=== PATIENT | male | born 1990 | race Caucasian/White ===

== ENCOUNTER 2016-08-26 17:50 | Emergency (ER) | payer OTHER ==
--- NOTE | 2016-08-26 19:08 | DIAGNOSTIC IMAGING REPORT ---
PROCEDURE: XR LUMBAR SPINE 2 OR 3 VIEWS INDICATION: LOWER BACK PAIN TECHNIQUE: Three views of the lumbar spine COMPARISON: None. FINDINGS: Five lumbar-type vertebral bodies are present. Normal vertebral body height without fracture. Normal AP and transverse alignment. Disc spacing is normal. No significant endplate or facet joint degeneration. The visible osseous pelvis and bowel gas pattern are normal. IMPRESSION: 1. Intact lumbar spine.
--- NOTE | 2016-08-26 19:11 | ED CLINICAL REPORT ---
Clinical Report - Physicians/Mid Levels [facility] [address] [place] [address] 08/26/2016 17:53 Patient: CANDY LOWE Time Seen: 18:17. Arrived- By private vehicle. Historian- patient. HISTORY OF PRESENT ILLNESS Chief Complaint: BACK PAIN. Onset was yesterday and it is still present. It was abrupt in onset. It is described as being in the area of the lower lumbar spine. The quality is noted to be aching. No radiation. No bladder dysfunction, bowel dysfunction, sensory loss or motor loss. Additional history - Was working in the yard yesterday shoveling and he felt a twinge in his back. Today he got up and his back keeps having spasms and pain. Patient notes an injury. Mechanism of injury- he was lifting and turning. Occurred at home. REVIEW OF SYSTEMS No chills, fever, sweats, calf pain or chest pain. No cough, difficulty breathing, pedal edema, palpitations or abdominal pain. No diarrhea, nausea or vomiting. All systems otherwise negative, except as recorded above. PAST HISTORY Problems: Ankylosing Spondylitis. Additional Surgeries: no known surgeries. Medications: None. Allergies: No Known Drug Allergy. SOCIAL HISTORY Current every day heavy tobacco smoker (cigarette)- less than 1 pack per day. History of drug use: marijuana. No alcohol use. FAMILY HISTORY Denies family medical history. ADDITIONAL NOTES The nursing notes have been reviewed. PHYSICAL EXAM Vital Signs: 08/26/2016 18:02 BP: 136/67. HR: 100. RR: 18. O2 saturation: 100%. Temp: 97.8 F. Have been reviewed. Appearance: Alert. Eyes: Pupils equal, round and reactive to light. ENT: Pharynx normal. Neck: Normal inspection. Painless ROM. CVS: Heart sounds normal. Respiratory: No respiratory distress. Breath sounds normal. Abdomen: No visible injury. Soft and nontender. Bowel sounds normal. No organomegaly. No mass. Back: Normal inspection. Moderate muscle spasm of the right and left posterior back. Moderately limited ROM in the back- in the lumbar spine: decreased flexion, extension, right lateral bending, left lateral bending and rotation to the right and left. Skin: Skin warm and dry. Normal skin color. Normal skin turgor. Extremities: Extremities exhibit normal ROM. No calf tenderness. Neuro: No motor deficit. No sensory deficit. LABS, X-RAYS, AND EKG LS-Spine X-rays: (L5-S1 disc space narrowing). The X-rays were independently viewed by me. PROGRESS AND PROCEDURES Course of Care: Patient is stable. Patient/family counseled. Old medical records ordered. Disposition: Discharged. Condition: stable. CLINICAL IMPRESSION Acute lumbar back pain associated with muscle strain. INSTRUCTIONS Apply ice for 20 minutes four times a day until better. Don't apply ice directly to skin and don't use while asleep. No driving or operating machinery while taking medication. No lifting greater than 5 lbs, no bending or stooping or no prolonged sitting. Warnings: GENERAL WARNINGS: Return or contact your physician immediately if your condition worsens or changes unexpectedly, if not improving as expected, or if other problems arise. Prescription Medications: Flexeril 10 mg: Take 1 orally every 8 hours as needed for muscle spasm. Dispense twenty (20). No refills. Substitution is permissible. Ketorolac 10 mg tablets: Take 1 tablet orally every 6 hours as needed. Dispense fifteen (15). No refills. Follow-up: Follow up with your doctor Monday in four days if not better. Understanding of the discharge instructions verbalized by patient. (Electronically signed by Amari Hodges MD 08/27/2016 10:09)
--- NOTE | 2016-08-26 19:11 | ED ORDER SUMMARY ---
..... Patient: CANDY LOWE OrderSheet [facility] VisitID: [id number] [address] [place] [address] 25y, M Registration Date/Time: 08/26/2016 ORDER SHEET Weight: 88.4 kg (stated) Allergies: No Known Drug Allergy GENERAL ORDERS: Lumbar Spine 2 or 3V Urgent (18:19 08/26/2016 Lex HOGAN) ([facility]ck 18:[address] [facility] [facility] (18:43 [facility]) MEDICATION ORDERS: IV FLUIDS: ORDER SHEET NOTES: [Electronically signed by Radha Garsia R.N. (19:43 08/26/2016)] [Electronically signed by Amari Hodges MD (10:09 08/27/2016)] [Electronically locked/signed by Radha Garsia R.N. (19:43 08/26/2016)]
--- NOTE | 2016-08-26 19:11 | ED NURSING NOTES ---
Clinical Report - Nurses Located Within [facility] [address] [place] [address] 08/26/2016 17:53 Patient: CANDY LOWE TRIAGE Triage time 18:Aug 26 2016. Acuity: LEVEL 4. Chief Complaint: BACK PAIN. RADHA COMA SCORE: Radha Coma Scale: 15- eyes open spontaneously (4); best verbal response- oriented x 4 (5); best motor response- obeys commands (6). --18:07 Graciela Bolden R.N. 18:02 08/26/16. BP: 136/67. HR: 100. RR: 18. O2 saturation: 100%. Temp: 97.8 F. Pain level now 8/10. --18:07 Graciela Bolden R.N. Weight: 88.4 kg stated. Height/Length: 71 inches Per Patient. BMI: 27.2. --18:06 Graciela Bolden R.N. Medications None. --18:05 Graciela Bolden R.N. Allergies No Known Drug Allergy. --18:05 Graciela Bolden R.N. History Arrived by private vehicle. Historian: patient. Accompanied by family. This started just prior to arrival. ( Was working in the yard yesterday shoveling and he felt a twinge in his back. Today he got up and his back keeps having spasms and pain.). He has had trouble walking. PAST MEDICAL HX: Tetanus status: unknown. Immunizations: status is unknown. SOCIAL HX: Current every day heavy tobacco smoker (cigarette)- less than 1 pack per day. History of drug use: marijuana. No alcohol use. SELF HARM ASSESSMENT: A self harm assessment was performed. The patient answered "no" to the question "Have you recently felt down, depressed, or hopeless?" and "Do you have thoughts of harming or killing yourself?". FALL RISK ASSESSMENT: Fall risk assessment completed. No fall risk identified. NUTRITIONAL RISK ASSESSMENT: The nutritional risk assessment revealed no deficiencies. FUNCTIONAL ASSESSMENT: Functional assessment: no impairments noted. LEARNING NEEDS ASSESSMENT: The learning needs assessment revealed no barriers. ABUSE ASSESSMENT: Abuse assessment: (yes) The patient was asked "Do you feel safe in your home?". SKIN INTEGRITY ASSESSMENT: Skin integrity risk assessment completed. No skin integrity risk identified. --18: Graciela Bolden R.N. PROBLEMS: Ankylosing Spondylitis. --18:05 Graciela Bolden R.N. ADDITIONAL SURGERIES: no known surgeries. Interventions ID band on patient. --18: Graciela Bolden R.N. PHYSICAL ASSESSMENT To room via wheelchair. GENERAL / NEURO / PSYCH: Alert. Oriented X 4. Appears in pain. RESPIRATORY: Respirations not labored. Chest nontender. Breath sounds within normal limits. CVS: Normal heart rate and rhythm. Capillary refill less than 2 seconds. GI / : Abdomen soft and nontender. Bowel sounds within normal limits. ( Last BM this am and normal). CVA tenderness. EXTREMITIES: Sensation intact in extremities. ROM of extremities within normal limits. BACK: Limited ROM of the back. Soft tissue tenderness. --18:08 Graciela Bolden R.N. NURSING PROGRESS NOTES The initial plan of care for this patient includes an assessment with efforts to address patient positioning, appropriate ambient lighting and comfortable environmental temperature; impairment of the musculoskeletal system. Pulse oximeter and NIBP monitor placed on patient. Cold pack applied. Head of bed elevated 75 degrees. Reassurance given. Call light placed in reach. Side rails up x 1. Bed placed in lowest position. Brakes of bed on. --18:08 Graciela Bolden R.N. DISPOSITION / DISCHARGE Departure time: 1915. Condition at departure: improved and stable. ( pt ambulated out of department without gait disturbance). No learning barriers present. Discharge instructions provided and reviewed with the patient. Reviewed medication(s) side effects, precautions, dosing and course information. Prescription(s) given to the patient. Reviewed referral to a primary care physician for followup. Activity restrictions (light lifting and no driving) reviewed. Patient and family verbalized understanding. Written instructions provided in [place]. The patient was discharged home and accompanied by family. He left the Emergency Department ambulatory and via private vehicle. Family member driving. --19:42 Radha Garsia R.N. 19:16 08/26/16. BP: deferred. HR: deferred. RR: deferred. O2 saturation: deferred. Temp: deferred. Pain level now deferred. --19:42 Radha Garsia R.N. Locked/Released at 08/26/2016 19:43 by Radha Garsia R.N.
--- NOTE | 2016-08-26 19:11 | ED ORDER SUMMARY ---
..... Patient: CANDY LOWE OrderSheet [facility] VisitID: [id number] [address] [place] [address] 25y, M Registration Date/Time: 08/26/2016 ORDER SHEET Weight: 88.4 kg (stated) Allergies: No Known Drug Allergy GENERAL ORDERS: Lumbar Spine 2 or 3V Urgent (18:19 08/26/2016 Lex HOGAN) ([facility]ck 18:[facility] (18:43 [facility]) MEDICATION ORDERS: IV FLUIDS: ORDER SHEET NOTES: [Electronically signed by Radha Garsia R.N. (19:43 08/26/2016)] [Electronically signed by Amari Hodges MD (10:09 08/27/2016)] [Electronically locked/signed by Radha Garsia R.N. (19:43 08/26/2016)]
--- NOTE | 2016-08-27 10:10 | ED MAR SUMMARY ---
..... Medication Administration Record [facility] [address] [id number] Patient: CANDY LOWE Jorge Visit ID: [id number] 25y, M Weight: 88.4 kg Height/Length: 71 in BMI: 27.2 ALLERGIES: No Known Drug Allergy
--- NOTE | 2016-08-27 10:10 | ED DISCHARGE INSTRUCTIONS ---
Patient: CANDY LOWE General Instructions [facility] VisitID: [id number] [address] [place] [address] 25y, M Registration Date/Time: 08/26/2016 Acute lumbar back pain associated with muscle strain. INSTRUCTIONS Apply ice for 20 minutes four times a day until better. Don't apply ice directly to skin and don't use while asleep. No driving or operating machinery while taking medication. No lifting greater than 5 lbs, no bending or stooping or no prolonged sitting. Warnings: GENERAL WARNINGS: Return or contact your physician immediately if your condition worsens or changes unexpectedly, if not improving as expected, or if other problems arise. Prescription Medications: Flexeril 10 mg: Take 1 orally every 8 hours as needed for muscle spasm. Dispense twenty (20). No refills. Substitution is permissible. Ketorolac 10 mg tablets: Take 1 tablet orally every 6 hours as needed. Dispense fifteen (15). No refills. Follow-up: Follow up with your doctor Monday in four days if not better. Understanding of the discharge instructions verbalized by patient. ADDITIONAL INFORMATION Back Pain [Acute Or Chronic] Back pain is usually caused by an injury to the muscles or ligaments of the spine. Sometimes the disks that separate each bone in the spine may bulge and cause pain by pressing on a nearby nerve. Back pain may also appear after a sudden twisting/bending force (such as in a car accident), after a simple awkward movement, or lifting something heavy with poor body positioning. In either case, muscle spasm is often present and adds to the pain. Acute back pain usually gets better in one to two weeks. Back pain related to disk disease, arthritis in the spinal joints or spinal stenosis (narrowing of the spinal canal) can become chronic and last for months or years. Unless you had a physical injury (for example, a car accident or fall) X-rays are usually not ordered for the initial evaluation of back pain. If pain continues and does not respond to medical treatment, x-rays and other tests may be performed at a later time. Home Care: You may need to stay in bed the first few days. But, as soon as possible, begin sitting or walking to avoid problems with prolonged bed rest (muscle weakness, worsening back stiffness and pain, blood clots in the legs). When in bed, try to find a position of comfort. A firm mattress is best. Try lying flat on your back with pillows under your knees. You can also try lying on your side with your knees bent up towards your chest and a pillow between your knees. Avoid prolonged sitting. This puts more stress on the lower back than standing or walking. During the first two days after injury, apply an ICE PACK to the painful area for 20 minutes every 2-4 hours. This will reduce swelling and pain. HEAT (hot shower, hot bath or heating pad) works well for muscle spasm. You can start with ice, then switch to heat after two days. Some patients feel best alternating ice and heat treatments. Use the one method that feels the best to you. You may use acetaminophen (Tylenol) or ibuprofen (Motrin, Advil) to control pain, unless another pain medicine was prescribed. [NOTE: If you have chronic liver or kidney disease or ever had a stomach ulcer or GI bleeding, talk with your doctor before using these medicines.] Be aware of safe lifting methods and do not lift anything over 15 pounds until all the pain is gone. Follow Up with your doctor or this facility if your symptoms do not start to improve after one week. Physical therapy may be needed. [NOTE: If X-rays were taken, they will be reviewed by a radiologist. You will be notified of any new findings that may affect your care.] Get Prompt Medical Attention if any of the following occur: Pain becomes worse or spreads to your legs Weakness or numbness in one or both legs Loss of bowel or bladder control Numbness in the groin or genital area Degenerative Disk Disease Spinal disks are gel-filled cushions between the bones of the spine (vertebrae). The disks act like shock absorbers. Over time, the disks may break down. This disorder is called degenerative disk disease (DDD). DDD can affect the neck or back. It is one of the most common causes of low back pain. It is the leading cause of disability in people under age 45 in the [place]. The pain usually remains localized to the lower back or neck. Muscle spasm is often present and adds to the pain. Disk degeneration is a natural part of aging, although it does not cause pain in most persons. It may also occur as a result of repeated minor injuries due to daily activities, sports, or accidents. It may lead to osteoarthritis of the spine. Back pain related to disk disease may come and go or become chronic and last for months or years. If the disk bulges or ruptures (also called slipped disk or herniated disk), it can put pressure on a nearby spinal nerve and cause neck or back pain that spreads down one arm or leg. X-rays or MRI (magnetic resonance imaging) scan may aid in the diagnosis. For acute pain, treatment consists of anti-inflammatory drugs, muscle relaxants, rest, ice, or heat. Narcotic pain medicines may be needed for short-term treatment of sudden worsening of pain. Due to their addictive potential, narcotics are not advised for long-term pain management. Other types of medicines are preferred. Surgery is usually not used to treat this condition unless there is a complication (such as nerve root compression). Home Care: FOR NECK PAIN: Use a comfortable pillow that supports the head and keeps the spine in a neutral position. The head should not be tilted forward or backward. FOR BACK PAIN: Avoid prolonged sitting. This puts more stress on the lower back than standing or walking. Establishing a regular exercise program to strengthen the supporting muscles of the spine will make it easier to live with DDD. During the first2 days after a flare-up of your pain, apply anice pack to the painful area for 20 minutes every 2-4 hours. This will reduce swelling and pain.Heat (hot shower, hot bath, or heating pad) works well for muscle spasm. You can start with ice, then switch to heat after2 days. Some patients feel best alternating ice and heat treatments. Use the method that feelsbest to you. You may use acetaminophen (Tylenol) or ibuprofen (Motrin, Advil) to control pain, unless another pain medicine was prescribed. [NOTE: If you have chronic liver or kidney disease or ever had a stomach ulcer or GI bleeding, talk with your doctor before using these medicines.] Follow Up with your physician, or as directed by our staff. [NOTE: If x-rays, a CT scan or an MRI scan were taken, they will be reviewed by a radiologist. You will be notified of any new findings that may affect your care.] Return Promptly or contact your doctor if any of the following occur: Increasing back pain New weakness, numbness, or pain in one or both arms or legs Foot drop (foot drags when you walk) Loss of bowel or bladder control Numbness or tingling in the buttock or groin area Unexplained fever over 100.4F (38.0C) Cyclobenzaprine Hydrochloride Oral tablet What is this medicine? CYCLOBENZAPRINE (carito wiggins) is a muscle relaxer. It is used to treat muscle pain, spasms, and stiffness. How should I use this medicine? Take this medicine by mouth with a glass of water. Follow the directions on the prescription label. If this medicine upsets your stomach, take it with food or milk. Take your medicine at regular intervals. Do not take it more often than directed. Talk to your commercial real estate lender regarding the use of this medicine in children. Special care may be needed. What side effects may I notice from receiving this medicine? Side effects that you should report to your doctor or health animal caretaker supervisor as soon as possible: allergic reactions like skin rash, itching or hives, swelling of the face, lips, or tongue chest pain fast heartbeat hallucinations seizures vomiting Side effects that usually do not require medical attention (report to your doctor or health animal caretaker supervisor if they continue or are bothersome): headache What may interact with this medicine? Do not take this medicine with any of the following medications: cisapride droperidol flecainide grepafloxacin halofantrine levomethadyl MAOIs like Carbex, Eldepryl, Marplan, Nardil, and Parnate nilotinib pimozide probucol sertindole This medicine may also interact with the following medications: abarelix alcohol contrast dyes dolasetron guanethidine medicines for cancer medicines for depression, anxiety, or psychotic disturbances medicines to treat an irregular heartbeat medicines used for sleep or numbness during surgery or procedure methadone octreotide ondansetron palonosetron phenothiazines like chlorpromazine, mesoridazine, prochlorperazine, thioridazine some medicines for infection like alfuzosin, chloroquine, clarithromycin, levofloxacin, mefloquine, pentamidine, troleandomycin tramadol vardenafil What if I miss a dose? If you miss a dose, take it as soon as you can. If it is almost time for your next dose, take only that dose. Do not take double or extra doses. Where should I keep my medicine? Keep out of the reach of children. Store at room temperature between 15 and 30 degrees C (59 and 86 degrees F). Keep container tightly closed. Throw away any unused medicine after the expiration date. What should I tell my health care provider before I take this medicine? They need to know if you have any of these conditions: heart disease, irregular heartbeat, or previous heart attack liver disease thyroid problem an unusual or allergic reaction to cyclobenzaprine, tricyclic antidepressants, lactose, other medicines, foods, dyes, or preservatives or trying to get breast-feeding What should I watch for while using this medicine? Check with your doctor or health animal caretaker supervisor if your condition does not improve within 1 to 3 weeks. You may get drowsy or dizzy when you first start taking the medicine or change doses. Do not drive, use machinery, or do anything that may be dangerous until you know how the medicine affects you. Stand or sit up slowly. Your mouth may get dry. Drinking water, chewing sugarless gum, or sucking on hard candy may help. Ketorolac Tromethamine Oral tablet What is this medicine? KETOROLAC (bita toe ROLE ak) is a non-steroidal anti-inflammatory drug (NSAID). It is used for a short while to treat moderate to severe pain, including pain after surgery. It should not be used for more than 5 days. How should I use this medicine? Take this medicine by mouth with a full glass of water. Follow the directions on the prescription label. Take your medicine at regular intervals. Do not take your medicine more often than directed. Do not take more than the recommended dose. A special MedGuide will be given to you by the pharmacist with each prescription and refill. Be sure to read this information carefully each time. Talk to your commercial real estate lender regarding the use of this medicine in children. While this drug may be prescribed for children as young as 16 years of age for selected conditions, precautions do apply. Patients over 65 years old may have a stronger reaction and need a smaller dose. What side effects may I notice from receiving this medicine? Side effects that you should report to your doctor or health animal caretaker supervisor as soon as possible: allergic reactions like skin rash, itching or hives, swelling of the face, lips, or tongue black or tarry stools breathing problems changes in vision chest pain high blood pressure nausea or vomiting redness, blistering, peeling or loosening of the skin, including inside the mouth severe abdominal pain slurred speech or weakness on one side of the body unexplained weight gain or swelling unusual bleeding or bruising unusually weak or tired yellowing of eyes or skin Side effects that usually do not require medical attention (report to your doctor or health animal caretaker supervisor if they continue or are bothersome): diarrhea dizziness headache heartburn What may interact with this medicine? Do not take this medicine with any of the following medications: aspirin and aspirin-like medicines cidofovir methotrexate NSAIDs, medicines for pain and inflammation, like ibuprofen or naproxen pemetrexed probenecid This medicine may also interact with the following medications: alcohol alendronate alprazolam carbamazepine cyclosporine diuretics flavocoxid fluoxetine ginkgo lithium medicines for high blood pressure like enalapril medicines that affect platelets like pentoxifylline medicines that treat or prevent blood clots like heparin, warfarin muscle relaxants phenytoin steroid medicines like prednisone or cortisone thiothixene What if I miss a dose? If you miss a dose, take it as soon as you can. If it is almost time for your next dose, take only that dose. Do not take double or extra doses. Where should I keep my medicine? Keep out of the reach of children. Store at room temperature between 20 and 25 degrees C (68 and 77 degrees F). Throw away any unused medicine after the expiration date. What should I tell my health care provider before I take this medicine? They need to know if you have any of these conditions: asthma bleeding problems like hemophilia cigarette smoker drink more than 3 alcohol containing drinks a day heart disease or circulation problems such as heart failure or leg edema (fluid retention) high blood pressure kidney disease liver disease stomach bleeding or ulcers an unusual or allergic reaction to ketorolac, aspirin, other NSAIDs, other medicines, foods, dyes, or preservatives or trying to get breast-feeding What should I watch for while using this medicine? Tell your doctor or health animal caretaker supervisor if your pain does not get better. Talk to your doctor before taking another medicine for pain. Do not treat yourself. This medicine does not prevent heart attack or stroke. In fact, this medicine may increase the chance of a heart attack or stroke. The chance may increase with longer use of this medicine and in people who have heart disease. If you take aspirin to prevent heart attack or stroke, talk with your doctor or health animal caretaker supervisor. Do not take medicines such as ibuprofen and naproxen with this medicine. Side effects such as stomach upset, nausea, or ulcers may be more likely to occur. Many medicines available without a prescription should not be taken with this medicine. This medicine can cause ulcers and bleeding in the stomach and intestines at any time during treatment. Do not smoke cigarettes or drink alcohol. These increase irritation to your stomach and can make it more susceptible to damage from this medicine. Ulcers and bleeding can happen without warning symptoms and can cause . You may get drowsy or dizzy. Do not drive, use machinery, or do anything that needs mental alertness until you know how this medicine affects you. Do not stand or sit up quickly, especially if you are an older patient. This reduces the risk of dizzy or fainting spells. This medicine can cause you to bleed more easily. Try to avoid damage to your teeth and gums when you brush or floss your teeth. You have been given the following additional information: Back Pain (Acute Or Chronic) Degenerative Disk Disease Cyclobenzaprine Hydrochloride Oral tablet Ketorolac Tromethamine Oral tablet No driving or operating machinery while taking medication. No lifting greater than 5 lbs, no bending or stooping or no prolonged sitting. (Electronically signed by Amari Hodges MD 08/27/2016 10:09)
--- NOTE | 2016-08-27 10:10 | ED MAR SUMMARY ---
..... Medication Administration Record [facility] [address] [id number] Patient: CANDY LOWE Jorge Visit ID: [id number] 25y, M Weight: 88.4 kg Height/Length: 71 in BMI: 27.2 ALLERGIES: No Known Drug Allergy
--- NOTE | 2016-08-27 10:10 | ED MED RECONCILIATION SUMMARY ---
Patient: CANDY LOWE Medication Reconciliation Report [facility] VisitID: [id number] [address] [place] [address] 25y, M Registration Date/Time: 08/26/2016 Weight: 88.4 kg Height/Length: 71 in. BMI: 27.2 ALLERGIES: No Known Drug Allergy The patient's Home Medications are listed below: NONE. The source(s) of the original Home Medication information: Not obtained. The following Medications were given to the patient in the Emergency Department: None. The following Medications were prescribed to the patient: Flexeril 10 mg: Take 1 orally every 8 hours as needed for muscle spasm. Dispense twenty (20). No refills. Substitution is permissible. -- Amari Hodges MD Ketorolac 10 mg tablets: Take 1 tablet orally every 6 hours as needed. Dispense fifteen (15). No refills. -- Amari Hodges MD
--- NOTE | 2016-08-27 10:10 | ED MED RECONCILIATION SUMMARY ---
Patient: CANDY LOWE Medication Reconciliation Report [facility] VisitID: [id number] [address] [place] [address] 25y, M Registration Date/Time: 08/26/2016 Weight: 88.4 kg Height/Length: 71 in. BMI: 27.2 ALLERGIES: No Known Drug Allergy The patient's Home Medications are listed below: NONE. The source(s) of the original Home Medication information: Not obtained. The following Medications were given to the patient in the Emergency Department: None. The following Medications were prescribed to the patient: Flexeril 10 mg: Take 1 orally every 8 hours as needed for muscle spasm. Dispense twenty (20). No refills. Substitution is permissible. -- Amari Hodges MD Ketorolac 10 mg tablets: Take 1 tablet orally every 6 hours as needed. Dispense fifteen (15). No refills. -- Amari Hodges MD
== END 2016-08-26 19:16 | disposition home or self-care (01) ==
LOC: ED SRH 17:50
DX: S39.012A Strain of muscle, fascia and tendon of lower back, initial encounter (principal); X50.0XXA Overexertion from strenuous movement or load, initial encounter; Y93.89 Activity, other specified; Y92.019 Unspecified place in single-family (private) house as the place of occurrence of the external cause; Y99.9 Unspecified external cause status; F17.210 Nicotine dependence, cigarettes, uncomplicated